=== PATIENT | male | born 1975 | race Caucasian/White ===

== ENCOUNTER 2017-09-17 20:40 | Emergency (ER) | payer OTHER, MEDICAID, SELFPAY ==
[2017-09-17 20:51] VITALS: BP 150/102; PULSE 100; RESP 16; TEMP 36.9; O2SAT 99; BMI 27.7
--- NOTE | 2017-09-17 21:07 | ED.EYEPROB ---
HPI - Eye Problem <Catalina Leonard PA-C - Last Filed: 09/17/17 21:53> General Chief complaint: Eye Problems Stated complaint: SOMETHING IN RT EYE Time Seen by Provider: 09/17/17 20:58 Related Data Home Medications Medication Instructions Recorded Confirmed propranolol 10 mg PO PRN PRN #0 07/20/16 Previous Rx's Medication Instructions Recorded triamcinolone acetonide 1 nava TOPICAL BID #15 gm 06/16/17 Allergies Allergy/AdvReac Type Severity Reaction Status Date / Time No Known Drug Allergies Allergy Verified 09/17/17 21:19 Exam <Catalina Leonard PA-C - Last Filed: 09/17/17 21:53> Initial Vital Signs Initial Vital Signs: Vital Signs Temperature 98.4 F 09/17/17 20:51 Pulse Rate 100 H 09/17/17 20:51 Respiratory Rate 16 09/17/17 20:51 Blood Pressure 150/102 H 09/17/17 20:51 Pulse Oximetry 99 09/17/17 20:51 <Marcel Pike MD - Last Filed: 09/17/17 21:55> Initial Vital Signs Initial Vital Signs: Vital Signs Temperature 98.4 F 09/17/17 20:51 Pulse Rate 100 H 09/17/17 20:51 Respiratory Rate 16 09/17/17 20:51 Blood Pressure 150/102 H 09/17/17 20:51 Pulse Oximetry 99 09/17/17 20:51 Course <Catalina Leonard PA-C - Last Filed: 09/17/17 21:53> Orders Ordered: Discontinued Medications Hydrocodone Bitart/Acetaminophen (Vicodin Prepack) 1 bottle MISC SEEINSTR ONE Stop: 09/17/17 21:48 Erythromycin (Erythromycin Ophth Oint) 1 applic EYE-RIGHT NOW ONE Stop: 09/17/17 21:48 Proparacaine HCl (Parcaine 0.5% Ophth Jodie) 2 drops EYE-OP NOW ONE Stop: 09/17/17 21:11 Vital Signs - 8 hr 09/17/17 20:51 Temperature 98.4 F Pulse Rate 100 H Respiratory Rate 16 Blood Pressure 150/102 H Pulse Oximetry 99 <Marcel Pike MD - Last Filed: 09/17/17 21:55> Orders Ordered: Discontinued Medications Hydrocodone Bitart/Acetaminophen (Vicodin Prepack) 1 bottle MISC SEEINSTR ONE Stop: 09/17/17 21:48 Erythromycin (Erythromycin Ophth Oint) 1 applic EYE-RIGHT NOW ONE Stop: 09/17/17 21:48 Proparacaine HCl (Parcaine 0.5% Ophth Jodie) 2 drops EYE-OP NOW ONE Stop: 09/17/17 21:11 Vital Signs - 8 hr 09/17/17 20:51 Temperature 98.4 F Pulse Rate 100 H Respiratory Rate 16 Blood Pressure 150/102 H Pulse Oximetry 99 Discharge Plan Departure Patient Disposition: Home, Self-Care Clinical Impression: Corneal abrasion, Foreign body in cornea, right eye, initial encounter Instructions: DI for Foreign Body in the Eye Activity Restrictions/Additional Instructions: Call the eye doctor (Dr. Bernal or Silvio) 1st thing in the morning. Let them know that you were seen in the emergency room with a foreign body in your eyes that we were not able to fully remove and need to be seen tomorrow. Take the ibuprofen and hydrocodone/acetaminophen tonight for pain. Also apply another dose of the erythromycin ointment (1/2 ribbon under your eyelid) tonight before bedtime and every 3-4 hours or first thing when you wake up tomorrow to help prevent infection (this should also help pain). You can use artificial tears or moisturizing drops as needed. Prescriptions: No Action propranolol 10 MG tablet 10 mg PO PRN PRNQty: 0 RF: 0 triamcinolone acetonide 0.5 % ointment 1 nava Topical BID Qty: 15 RF: 0 Referrals: Brennen Bernal MD [Physician] - Rodrigue Langford MD [Physician] - <Marcel Pike MD - Last Filed: 09/17/17 21:55> Cosign ED Attending Cosignature Attestation: Requested by Catalina Leonard to evaluate the patient's right eye that has a retained foreign body. Prior to my evaluation the patient received proparacaine with reduction in pain, had a amk lamp exam with sourcing with a negative Uriel sign but demonstrating diffuse corneal abrasions. Extraocular Structures: * OD without proptosis, periorbital erythema, swelling, warmth, or tenderness. Lids without edema, erythema, swelling. Nasolacrimal duct without swelling, warmth, erythema, or tenderness. Visual acuity baseline per patient. Visual ervin full to confrontation. EOMI without pain or nystagmus. Ocular Structures: OD * PERRLA (4 to 2 mm bilaterally) without pain on both afferent and efferent light stimulation. * EOMI without pain or nystagmus. * Slit lamp exam: 3 o'clock position to the people immediately inside the outer periphery of the Iris there is a punctate foreign body embedded on the cornea. An 18gauge needle was used to remove approximately 90% with a scant amount remaining embedded. Patient referred to ophthalmology. Antibiotic ointment provided. Pain medications provided. Marcel Pike MD.
[2017-09-17] MEDS: IBUPROFEN 800MG PREPACK 1 BOTTLE MISC (22:01)
[2017-09-17] MEDS: HYDROCODONE/ACET 5/325 PREPACK 1 BOTTLE MISC (22:01)
[2017-09-17] MEDS: ERYTHROMYCIN OPHTH 1 GM OINT 1 APPLIC EYE-RIGHT (22:01)
--- NOTE | 2017-09-17 22:18 | PC.NURSE ---
Pt has had eye irritation for 2 days, worsening today. Unknown if he injured it, however he had been working in the garage around the time the irritation began and something may have gotten in the eye at this time, per his report.
[2017-09-17 22:21] VITALS: BP 166/112; PULSE 91; RESP 18; O2SAT 100
== END 2017-09-17 22:23 | disposition home or self-care (01) ==
PROVIDERS: Emergency Provider Internal Medicine; PCP Nurse Practitioner
DX: S05.00XA Injury of conjunctiva and corneal abrasion without foreign body, unspecified eye, initial encounter (principal); T15.90XA Foreign body on external eye, part unspecified, unspecified eye, initial encounter
CPT/HCPCS: 99283

== ENCOUNTER → 2019-01-16 16:17 | Outpatient (CLI) | payer OTHER, MEDICAID, SELFPAY ==
[2019-01-16 18:14] LABS: Alanine Aminotransferase 40 IU/L (21-72); Albumin 4.4 g/dL (3.5-5.0); Albumin Globulin Ratio 1.6 (1.0-2.8); Alkaline Phosphatase 52 U/L (38-126); Aspartate Aminotransferase 33 IU/L (17-59); BUN Creatinine Ratio 17.3 (6-22); Bilirubin Total 0.3 mg/dL (0.2-1.3); Blood Urea Nitrogen 19 mg/dL (9-20); Calcium 9.8 mg/dL (8.4-10.2); Carbon Dioxide 27 mmol/L (22-32); Chloride 104 mmol/L (98-107); Cholesterol 232 mg/dL (140-199); Estimated Glomerular Filt Rate > 60.0 mL/min (>60); Globulin 2.8 g/dL (1.7-4.1); Glucose 85 mg/dL (70-100); HDL Cholesterol 55 mg/dL (40-60); HEMOLYSIS < 15 (0-50); LDL Cholesterol Calculated 148 mg/dL (<100); Potassium 4.5 mmol/L (3.4-5.1); Sodium 139 mmol/L (137-145); Total Protein 7.2 g/dL (6.3-8.2); Triglycerides 147 mg/dL (35-150)
[2019-01-16 18:27] LABS: Free T4, Direct Thyroxine 0.92 ng/dL (0.78-2.19)
[2019-01-16 18:41] LABS: Thyroid Stimulating Hormone 0.69 uIU/mL (0.47-4.68)
== END ==
PROVIDERS: PCP Internal Medicine; Visit Provider Internal Medicine
DX: Z13.1 Encounter for screening for diabetes mellitus (principal); Z13.6 Encounter for screening for cardiovascular disorders; I10 Essential (primary) hypertension; F41.1 Generalized anxiety disorder
CPT/HCPCS: 36415; 80053; 80061; 84439; 84443

== ENCOUNTER → 2021-01-31 14:04 | Outpatient (CLI) | payer OTHER, MEDICAID, SELFPAY ==
[2021-01-31 15:41] LABS: Alanine Aminotransferase 31 IU/L (<50); Albumin 4.7 g/dL (3.5-5.0); Albumin Globulin Ratio 1.6 (1.0-2.8); Alkaline Phosphatase 56 U/L (38-126); Aspartate Aminotransferase 31 IU/L (17-59); Bilirubin Total 0.5 mg/dL (0.2-1.3); Blood Urea Nitrogen 16 mg/dL (9-20); Carbon Dioxide 26 mmol/L (22-32); Chloride 102 mmol/L (98-107); Estimated Glomerular Filt Rate > 60.0 mL/min (>60); Globulin 2.9 g/dL (1.7-4.1); Glucose 91 mg/dL (70-100); HEMOLYSIS < 15 (0-50); Potassium 4.8 mmol/L (3.4-5.1); Sodium 139 mmol/L (137-145); Total Protein 7.6 g/dL (6.3-8.2)
[2021-02-06 09:36] LABS: Percent Free Testosterone 4.29 % (1.50-4.20); Testosterone Free 12.77 ng/dL (5.00-21.00); Testosterone Total 297.6 ng/dL (264.0-916.0)
== END ==
PROVIDERS: PCP Internal Medicine; Referring Provider Internal Medicine; Visit Provider Internal Medicine
DX: I10 Essential (primary) hypertension (principal); R53.83 Other fatigue
CPT/HCPCS: 36415; 80053; 84402; 84403; 84443

== ENCOUNTER 2021-02-27 14:53 | Observation (INO) | payer OTHER, MEDICAID, SELFPAY ==
[2021-02-27] VITALS (7 sets, daily range): BP systolic 93–147; BP diastolic 54–99; PULSE 60–98; RESP 15–18; TEMP 36.4; O2SAT 94–99; BMI 29.7
--- NOTE | 2021-02-27 16:03 | DI.RAD.S_ITS ---
PROCEDURE: XR FOREARM LT 2V INDICATIONS: Laceration TECHNIQUE: 2 views of the forearm were acquired. COMPARISON: None. FINDINGS: Bones: No fractures or dislocations. No suspicious bony lesions. Soft tissues: No suspicious soft tissue calcifications or masses. Forearm soft tissue defect noted compatible with reported laceration. No radiodense foreign body. IMPRESSION: No fracture. No osseous lesion. If symptoms and/or clinical suspicion for pathology persists, further assessment with repeat radiographs (7-10 days) or advanced imaging (e.g. CT, MRI or bone scan) should be considered. Dictated by: Aleah Spencer MD, PhD on 02/27/2021 at 16:31 Approved by: Aleah Spencer MD, PhD on 02/27/2021 at 16:32
--- NOTE | 2021-02-27 16:16 | ED_ITS ---
HPI - Extremity Injury (Upper) <Jean Claude Dorsey PA-C - Last Filed: 02/28/21 12:06> General Chief Complaint: Extremity Injury, Upper Stated Complaint: Cut left arm with skill saw Time Seen by Provider: 02/27/21 15:52 Source: patient Mode of arrival: Ambulatory History of Present Illness HPI narrative: Patient is a 45-year-old male presenting to the emergency department today for evaluation of a left forearm laceration. Patient states he was working on a skill saw today when the injury occurred. Of note, he denies injury or lacerations elsewhere. Additionally, patient states that he has full movement of the left upper extremity and he notes good sensation throughout the extremity. No fever, chills, chest pain, shortness of breath, nausea, vomiting, diarrhea, hematuria, or dysuria reported. No other concerns voiced at this time. Related Data Previous Rx's Medication Instructions Recorded atenolol 100 mg tablet 50 mg PO DAILY #90 tab 01/19/19 tadalafil 20 mg tablet 10 - 20 mg PO DAILY PRN #10 tab 01/31/21 dextroamphetamine-amphetamine 20 20 mg PO BID #60 tab 02/20/21 mg tablet dextroamphetamine-amphetamine 30 30 mg PO BID #60 tab 02/20/21 mg tablet cephalexin 750 mg capsule (Keflex) 750 mg PO BID #10 cap 02/27/21 hydrocodone 5 mg-acetaminophen 325 1 tab PO TID PRN #14 tab 02/27/21 mg tablet Allergies Allergy/AdvReac Type Severity Reaction Status Date / Time No Known Drug Allergies Allergy Verified 01/31/21 13:40 Review of Systems <Jean Claude Dorsey PA-C - Last Filed: 02/28/21 12:06> Constitutional Constitutional: Denies chills, Denies fatigue, Denies fever(s), Denies frequent falls, Denies lethargy and Denies weakness Eyes Eyes: Denies loss of vision ENT Ears, Nose, Mouth, and Throat: Denies dizziness and Denies neck pain Cardiovascular Cardiovascular: Denies chest pain, Denies irregular heart rhythm, Denies l ightheadedness, Denies palpitations, Denies dyspnea, Denies dyspnea on exertion and Denies orthopnea Respiratory Respiratory: Denies cough, Denies dyspnea, Denies dyspnea on exertion and Denies wheezing Gastrointestinal Gastrointestinal: Denies abdominal pain, Denies change in bowel habits, Denies diarrhea, Denies nausea and Denies vomiting Musculoskeletal Musculoskeletal: Denies back pain, Denies muscle weakness, Denies neck pain, Denies numbness and Denies tingling Integumentary/Breasts Skin/Breast: Denies pruritus, Denies erythema, Denies rash and Reports wounds (Laceration to the left forearm) Neurologic Neurologic: Denies behavioral changes, Denies confusion, Denies dizziness, Denies frequent falls, Denies loss of vision, Denies numbness, Denies tingling and Denies weakness Psychiatric Psychiatric: Denies behavioral changes and Denies confusion Endocrine Endocrine: Denies fatigue and Denies palpitations Allergic/Immunologic Allergic/Immunologic: Denies wheezing Patient History <Jean Claude Dorsey PA-C - Last Filed: 02/28/21 12:06> Medical History ADHD Anxiety state, unspecified Depression Erectile dysfunction Sleep disturbance, unspecified (11/09/10) Social History Smoking Status: Never smoker Smoking Status: Never smoker alcohol intake frequency: a few times a week Substance Use Type: does not use Exam <Jean Claude Dorsey PA-C - Last Filed: 02/28/21 12:06> Narrative Exam Narrative: GENERAL: 45 year old patient appears stated age. Well-developed patient, in mild distress. Diaphoretic HEAD: Atraumatic. Normocephalic. EYES: Pupils equal round and reactive. Extraocular motions intact. No scleral icterus. No injection or drainage. ENT: Nose without bleeding, purulent drainage. Throat without erythema, tonsillar hypertrophy or exudate. Airway patent. NECK: Trachea midline. Non tender CARDIOVASCULAR: Regular rate and rhythm without murmurs, gallops, or rubs. RESPIRATORY: Clear to auscultation. Breath sounds equal bilaterally. No wheezes, rales, or rhonchi. GASTROINTESTINAL: Abdomen soft, non-tender, nondistended. EXTREMITIES: No edema. Jagged laceration to the anterior aspect of the mid left forearm. No significant surrounding erythema or swelling. BACK: Nontender without deformity or crepitance. No flank tenderness. NEURO: AOx3. SKIN: No rash or erythema of visible areas Initial Vital Signs Initial Vital Signs: Vital Signs Pulse Rate 60 02/27/21 15:00 Respiratory Rate 18 02/27/21 15:00 Blood Pressure 93/54 L 02/27/21 15:00 Pulse Oximetry 94 02/27/21 15:00 <Jose Quiñones MD - Last Filed: 02/28/21 16:18> Initial Vital Signs Initial Vital Signs: Vital Signs Pulse Rate 60 02/27/21 15:00 Respiratory Rate 18 02/27/21 15:00 Blood Pressure 93/54 L 02/27/21 15:00 Pulse Oximetry 94 02/27/21 15:00 Course <Jean Claude Dorsey PA-C - Last Filed: 02/28/21 12:06> Course Course Narrative: X-ray of left forearm obtained. Orders Ordered: Discontinued Medications Hydrocodone Bitart/Acetaminophen (Hydrocodone/Acet 5/325 Tablet) 1 tab PO PACUNOW PRN PRN Reason: Mild or moderate pain Cefazolin Sodium/Dextrose (Cefazolin 2 Gm/20 Ml Syringe) 2 gm IV NOW ONE Stop: 02/27/21 17:09 Last Admin: 02/27/21 17:54 Dose: 2 gm Documented by: ALBER Bupivacaine HCl 30 ml/ (Epinephrine HCl 0.15 mg) 0 ml INJ NOW ONE Stop: 02/27/21 19:42 Last Admin: 02/27/21 19:42 Dose: 10 ml Documented by: ALBANIA Diphtheria/Tetanus/Acell Pertussis (Tet,Diph,Pertuss(Acell),Vac/Pf 0.5 Ml Syringe) 0.5 ml IM .ONCE ONE Stop: 02/27/21 16:41 Last Admin: 02/27/21 16:44 Dose: 0.5 ml Documented by: ROHAN Lactated Ringer's (Lactated Ringers) 1,000 mls @ 42 mls/hr IV CONT GRACIA Last Infusion: 02/27/21 20:16 Dose: 0 mls/hr Documented by: [email or web address] Admin: 02/27/21 20:16 Dose: 42 mls/hr Documented by: [email or web address] Ketorolac Tromethamine (Ketorolac 30 Mg/Ml Vial) 15 mg IV NOW ONE Stop: 02/27/21 17:50 Last Admin: 02/27/21 17:53 Dose: 15 mg Documented by: AKINNEY Metoclopramide HCl (Metoclopramide 10 Mg/2 Ml Inj) 10 mg IV NOW PRN PRN Reason: Nausea And Vomiting Ondansetron HCl (Ondansetron 4 Mg/2 Ml Inj) 4 mg IV NOW PRN PRN Reason: Nausea And Vomiting Reevaluation(s) Reevaluation #1: Following irrigation with normal saline the wound does not appear to have arterial bleed or ligamentous involvement. However, wound is missing significant tissue and successful closure in the emergency department would prove to be difficult. Time: 17:00 Consultations Consultation #1: Consult with Dr. Cole (orthopedic surgery) and recommends irrigating the wound with normal saline, beginning the patient on IV cefazolin and attempted closure in the emergency department. Time: 16:40 Vital Signs Vital signs: Vital Signs - 8 hr 02/27/21 15:00 02/27/21 16:37 Pulse Rate 60 98 H Respiratory Rate 18 Blood Pressure 93/54 L 146/99 H Pulse Oximetry 94 99 <Jose Quiñones MD - Last Filed: 02/28/21 16:18> Orders Ordered: Discontinued Medications Hydrocodone Bitart/Acetaminophen (Hydrocodone/Acet 5/325 Tablet) 1 tab PO PACUNOW PRN PRN Reason: Mild or moderate pain Cefazolin Sodium/Dextrose (Cefazolin 2 Gm/20 Ml Syringe) 2 gm IV NOW ONE Stop: 02/27/21 17:09 Last Admin: 02/27/21 17:54 Dose: 2 gm Documented by: ALBER Bupivacaine HCl 30 ml/ (Epinephrine HCl 0.15 mg) 0 ml INJ NOW ONE Stop: 02/27/21 19:42 Last Admin: 02/27/21 19:42 Dose: 10 ml Documented by: ALB[place]IA Diphtheria/Tetanus/Acell Pertussis (Tet,Diph,Pertuss(Acell),Vac/Pf 0.5 Ml Syringe) 0.5 ml IM .ONCE ONE Stop: 02/27/21 16:41 Last Admin: 02/27/21 16:44 Dose: 0.5 ml Documented by: ROHAN Lactated Ringer's (Lactated Ringers) 1,000 mls @ 42 mls/hr IV CONT GRACIA Last Infusion: 02/27/21 20:16 Dose: 0 mls/hr Documented by: Admin: 02/27/21 20:16 Dose: 42 mls/hr Documented by: [email or web address] Ketorolac Tromethamine (Ketorolac 30 Mg/Ml Vial) 15 mg IV NOW ONE Stop: 02/27/21 17:50 Last Admin: 02/27/21 17:53 Dose: 15 mg Documented by: ALBER Metoclopramide HCl (Metoclopramide 10 Mg/2 Ml Inj) 10 mg IV NOW PRN PRN Reason: Nausea And Vomiting Ondansetron HCl (Ondansetron 4 Mg/2 Ml Inj) 4 mg IV NOW PRN PRN Reason: Nausea And Vomiting Vital Signs Vital signs: Vital Signs - 8 hr 02/27/21 15:00 02/27/21 16:37 Pulse Rate 60 98 H Respiratory Rate 18 Blood Pressure 93/54 L 146/99 H Pulse Oximetry 94 99 MDM - Extremity Injury (Upper) <Jean Claude Dorsey PA-C - Last Filed: 02/28/21 12:06> Lab Data Labs: Lab Results 02/27/21 Range/Units 18:35 SARS-CoV-2 (PCR) Negative (Negative) MDM Narrative Medical decision making narrative: Patient is a 45-year-old male presenting to the emergency department today for evaluation of a left forearm laceration. To consider simple superficial laceration versus deep laceration verses wound infection. Patient sent to the operating room to have clean out and attempted closure of the wound. Wound was thoroughly irrigated and explored in the emergency room. Patient agrees to plan to go to the operating room for further workup on the laceration. Strict return precautions discussed with patient. <Jose Quiñones MD - Last Filed: 02/28/21 16:18> Lab Data Labs: Lab Results 02/27/21 Range/Units 18:35 SARS-CoV-2 (PCR) Negative (Negative) Discharge Plan Departure Patient Disposition: Admitted to Surgery Clinical Impression: Forearm laceration Admit Date/Time: 02/27/21 19:42 Admit Provider: Ibeth Cole <Jose Quiñones MD - Last Filed: 02/28/21 16:18> Cosign ED Attending Cosignature Attestation: I personally evaluated and examined the patient and agree with the assessment, treatment plan, and disposition of the patient as recorded by the APC.
[2021-02-27] MEDS: TET,DIPH,PERTUSS(ACELL),VAC/PF 0.5 ML SYRINGE IM (16:44)
[2021-02-27] MEDS: KETOROLAC 30 MG/ML VIAL 15 MG IV (17:53)
[2021-02-27] MEDS: CEFAZOLIN 2 GM/20 ML SYRINGE IV (17:54)
[2021-02-27 18:56] LABS: COVID19 -Nasal RAPID Negative (Negative)
--- NOTE | 2021-02-27 19:27 | P.HP_ITS ---
History of Present Illness History of Present Illness Date Patient Seen: 02/27/21 Time Patient Seen: 19:27 Date of Onset of Symptoms: 02/27/21 Chief complaint: Cut left arm with skill saw Narrative: Mr. Coleman is a 45 yo M with saw injury to his left forearm. His wound was irrigated in the ED. Ortho service was consulted and patient asked to have wound closed in surgery setting due to complexity of wound. Informed consent was obtained and patient is scheduled for I&D and wound closure. Patient History Medical History ADHD Anxiety state, unspecified Depression Erectile dysfunction Sleep disturbance, unspecified (11/09/10) Family & Social History Safety & Behavioral: Feels Safe in Current Yes Environment Been Physically Hurt or No Threatened By a Person Tobacco & Substance use: Smoking Status Never smoker alcohol intake frequency a few times a week Substance Use Type does not use Meds Home Medications and Allergies Home Medications Medication Instructions Recorded Confirmed Type atenolol 100 mg tablet 50 mg PO DAILY #90 tab 01/19/19 01/31/21 Rx tadalafil 20 mg tablet 10 - 20 mg PO DAILY PRN #10 tab 01/31/21 01/31/21 Rx dextroamphetamine-amphetamine 20 20 mg PO BID #60 tab 02/20/21 Rx mg tablet dextroamphetamine-amphetamine 30 30 mg PO BID #60 tab 02/20/21 Rx mg tablet Allergies Allergy/AdvReac Type Severity Reaction Status Date / Time No Known Drug Allergies Allergy Verified 01/31/21 13:40 Exam Vital Signs (past 8 hours): - 02/27/21 15:00 02/27/21 16:37 02/27/21 16:58 Pulse Rate 60 98 H Respiratory Rate 18 Blood Pressure 93/54 L 146/99 H Pulse Oximetry 94 99 99 02/27/21 17:00 Pulse Rate Respiratory Rate Blood Pressure 144/95 H Pulse Oximetry Oxygen Delivery Method Room Air [facility] Other: left forearm wound, superficial to fascia, uneven edges with some necrotis skin due to abrasion from saw. No active bleeding, no tendon, nerve, blood vessel involvement. Extrem Other: left forearm with 10 cm long laceration in mid-forearm with two transverse cuts with thin skin bridge in between, no fascial involvement, no active bleeding, neurovascular intact. Objective Labs Labs: Laboratory Results - last 24 hr 02/27/21 18:35 SARS-CoV-2 (PCR) Negative Assessment & Plan Assessment & Plan narrative: Patient with left forearm laceration with complex skin/subcutaneous involvement due to skill saw cutting through sweat shirt. After informed consent was obtained, patient was taken to OR for closure and I&D of wound. Time Spent With Patient Critical Care time: I spent a total of [] minutes of critical care time on this patient's care today; this time is exclusive of procedural time.
--- NOTE | 2021-02-27 19:37 | SUR.OPER ---
Supine on stretcher, pillow under head.
[2021-02-27] MEDS: BUPIVACAINE 0.25% (PF) 30 ML, EPINEPHrine 0.15 MG INJ (19:42)
--- NOTE | 2021-02-27 20:08 | PM.OP.1 ---
Operative Date/Time/Diagnoses Date of procedure: 02/27/21 Time of procedure: 19:00 Pre-op diagnosis: 1. Left forearm laceration Post-op diagnosis: same Procedure & Clinicians Procedure: 1. Left forearm skin irrigation and debridement 10 square centimeter 2. Left arm wound closure Same procedure as scheduled: Yes Indications: Mr. Coleman is a 45 yo M who sustained left arm laceration with skill saw. His skin wound is somewhat complex due to the nature of cut through his clothing. After informed consent was obtained, patient is scheduled for OR I&D and closure. Surgeon: Ibeth Cole Click Yes if Unassisted: Yes Anesthesia Type: Sedation and Local Operative Notes Closure Type: primary Specimen(s): none sent Estimated Blood Loss (mL): 0 Blood products transfused: none Procedure in detail: After informed consent was obtained and placed in the chart, patient's surgical site was marked. Patient was taken to the operating room and placed in a supine position. Patient's left forearm was prepped and draped in sterile fashion. 0.25% Marcaine with epinephrine was used to perform anesthetic via injection using a 20 gauge needle. IV sedation was also given. Fifteen blade was used to excise unhealthy skin edges due to the non even cutting nature of this all to his skin. After the debridement of the skin was finished the wound was clean with sterile normal saline. The surface area of the skin is approximately 10 sq cm. 3-0 nylon suture was used to close the skin in both running and interrupted fashion. The traumatic wound was appropriately closed. Xeroform 4 x 4 and Eduardo bandage was used to cover patient's wound. At this time patient was transferred to recovery room stable condition. There is a thin skin bridge in between the 2 separate lacerations due to the rotating solve blade. I informed patient prior to surgery the skin bridge my become necrotic due to the location and nature of the cut with poor blood supply to the skin bridge. Patient understands. Patient will be discharged today with oral antibiotics. Patient will be instructed to follow-up with Orthopedics in 2 weeks for suture removal. Complications: none Post-operative Condition: stable Disposition: PACU Plan for aftercare: Discharge to home
[2021-02-27] MEDS: LACTATED RINGERS 1,000 ML 42 ML IV (20:16)
== END 2021-02-27 20:35 | disposition home or self-care (01) ==
LOC: ED 19:10 → AC 19:43
PROVIDERS: Admitting Provider Orthopaedic Surgery Orthopaedic Surgery of the Spine; Emergency Provider Physician Assistant; PCP Internal Medicine; Visit Provider Orthopaedic Surgery Orthopaedic Surgery of the Spine
PROC: (CPT 13121; principal; 2021-02-27 19:00)
DX: S51.812A Laceration without foreign body of left forearm, initial encounter (principal); W29.8XXA Contact with other powered hand tools and household machinery, initial encounter; I10 Essential (primary) hypertension; Z20.822 Contact with and (suspected) exposure to COVID-19; Z23 Encounter for immunization
CPT/HCPCS: 13121; 13122; 36415; 73090; 87635; 90471; 96374; 96375; 99284; C9803; G0378; 90715; J0171; J0690; J1885; J2250; J2704; J3010

== ENCOUNTER → 2022-12-11 13:52 | Outpatient (CLI) | payer OTHER, MEDICAID, SELFPAY ==
[2022-12-11 19:16] LABS: Appearance Urine UA CLEAR; Bilirubin Urine UA NEGATIVE (NEGATIVE); Color Urine UA YELLOW; Glucose Urine UA NEGATIVE (Negative); Ketones Urine UA TRACE (NEGATIVE); Leukocyte Esterase Urine UA NEGATIVE (NEGATIVE); Nitrite Urine UA NEGATIVE (Negative); Occult Blood Urine UA NEGATIVE (Negative); Protein Urine UA NEGATIVE (Negative); Specific Gravity Urine UA >=1.030 (1.000-1.035)
[2022-12-11 19:33] LABS: Bacteria Urine None Seen; Culture Indicated Urine Cult Not Indicated; RBC Urine None Seen (0-5/HPF); Squamous Epithelial Cell Urine None Seen (0-5/HPF); WBC Urine 0-1/HPF (0-5/HPF)
[2022-12-11 20:46] LABS: Urine N gonorrhoeae NOT DETECTED
[2022-12-11 20:56] LABS: Urine Chlamydia NOT DETECTED
== END ==
PROVIDERS: PCP Internal Medicine; Visit Provider Physician Assistant
DX: R36.1 Hematospermia (principal)
CPT/HCPCS: 81001; 87491; 87591

== ENCOUNTER → 2022-12-11 13:55 | Outpatient (CLI) | payer OTHER, MEDICAID, SELFPAY ==
[2022-12-11 14:31] LABS: Add Manual Diff / Slide Review NO; Basophils Absolute Auto 100 /uL (0-100); Basophils Percent Auto 1.1 % (0-2); Eosinophils Absolute Auto 200 /uL (0-450); Eosinophils Percent Auto 1.8 % (2-4); Hemoglobin 14.1 g/dL (13.5-17.5); Lymphocytes Absolute Auto 2700 /uL (1100-4500); Lymphocytes Percent Auto 27.9 % (25-40); Mean Corpuscular HGB Conc 33.5 % (30-36); Mean Corpuscular Hemoglobin 29.2 PG (26-34); Mean Corpuscular Volume 87.1 fL (80-100); Monocytes Absolute Auto 800 /uL (0-900); Monocytes Percent Auto 8.4 % (3-14); Neutrophils Absolute Auto 5900 /uL (1500-7000); Neutrophils Percent Auto 60.8 % (50-75); Platelet Count 312 X10^3/uL (150-400); Red Blood Cell Count 4.82 X10^6/uL (4.5-5.9); Red Cell Distribution Width 14.1 % (11.6-14.8); White Blood Cell Count 9.7 X10^3/uL (4.5-11.0)
[2022-12-11 14:51] LABS: Alanine Aminotransferase 27 IU/L (<50); Albumin Globulin Ratio 1.4 (1.0-2.8); Alkaline Phosphatase 45 U/L (38-126); Aspartate Aminotransferase 32 IU/L (17-59); BUN Creatinine Ratio 18.9 (6-22); Bilirubin Total 0.4 mg/dL (0.2-1.3); Blood Urea Nitrogen 18 mg/dL (9-20); Calcium 8.5 mg/dL (8.4-10.2); Carbon Dioxide 23 mmol/L (22-32); Chloride 104 mmol/L (98-107); Estimated Glomerular Filt Rate > 60 mL/min (>60); Globulin 2.8 g/dL (1.7-4.1); Glucose 116 mg/dL (70-100); HEMOLYSIS < 15 (0-50); Potassium 3.8 mmol/L (3.4-5.1); Sodium 137 mmol/L (137-145); Total Protein 6.8 g/dL (6.3-8.2)
[2022-12-11 15:21] LABS: Prostate Specific Antigen Scrn 0.725 ng/mL (0.1-4.0)
== END ==
PROVIDERS: PCP Internal Medicine; Referring Provider Physician Assistant; Visit Provider Physician Assistant
DX: R36.1 Hematospermia (principal); Z12.11 Encounter for screening for malignant neoplasm of colon; Z12.5 Encounter for screening for malignant neoplasm of prostate
CPT/HCPCS: 80053; 81001; 85025; 87491; 87591; G0103